=== PATIENT | male | born 1955 | race Caucasian/White ===

== ENCOUNTER 2018-04-30 16:47 | Inpatient (IN) | payer BC, OTHER ==
[~2018-04-30] VITALS: Ht 167.6 cm; Wt 61.7 kg
[2018-04-30] MEDS ORDERED: AMPICILLIN SODIUM/SULBACTAM NA 1.5GM VIAL ONE (17:21)
[2018-04-30] MEDS ORDERED: SODIUM CHLORIDE 0.9% 500ML 500 ML IV ONE (17:21)
[2018-04-30 17:25] LABS: BASOPHILS % (AUTO) 0.6 % (0.0-5.0); EOSINOPHILS % (AUTO) 0.3 % (0.0-8.0); HEMATOCRIT 37.7 % (42-54); LYMPHOCYTES % (AUTO) 12.2 % (21.0-51.0); MEAN CORPUSCULAR HEMOGLOBIN 32.5 pg (27.0-33.0); MEAN CORPUSCULAR HGB CONC 33.3 g/dL (32.0-36.0); MEAN CORPUSCULAR VOLUME 97.7 fL (79-99); MONOCYTES % (AUTO) 6.6 % (3.0-13.0); NEUTROPHILS % (AUTO) 80.3 % (40.0-77.0); PLATELET COUNT (AUTO) 193 K/uL (130-400); RED BLOOD CELL COUNT(AUTO) 3.85 MIL/uL (4.50-6.20); RED CELL DISTRIBUTION WIDTH 13.8 % (11.0-15.5); WHITE BLOOD COUNT (AUTO) 10.2 K/uL (4.8-10.8)
[2018-04-30 17:39] LABS: CREATININE 0.9 mg/dL (0.5-1.5); POTASSIUM 3.9 mmol/L (3.5-5.1)
[2018-04-30 21:30] VITALS: BP 181/85
[2018-04-30 23:00] VITALS: BP 139/80
[2018-05-01] VITALS (25 sets, daily range): BP systolic 113–187; BP diastolic 64–95
[2018-05-01] MEDS ORDERED: BENA20TA10 PO (04:19)
[2018-05-01] MEDS ORDERED: SIMV20TA6 PO (04:19)
[2018-05-01 04:32] LABS: BASOPHILS % (AUTO) 0.7 % (0.0-5.0); EOSINOPHILS % (AUTO) 0.7 % (0.0-8.0); HEMATOCRIT 35.3 % (42-54); LYMPHOCYTES % (AUTO) 16.3 % (21.0-51.0); MEAN CORPUSCULAR HEMOGLOBIN 33.7 pg (27.0-33.0); MEAN CORPUSCULAR HGB CONC 34.8 g/dL (32.0-36.0); MEAN CORPUSCULAR VOLUME 96.7 fL (79-99); MONOCYTES % (AUTO) 7.7 % (3.0-13.0); NEUTROPHILS % (AUTO) 74.6 % (40.0-77.0); PLATELET COUNT (AUTO) 190 K/uL (130-400); RED BLOOD CELL COUNT(AUTO) 3.65 MIL/uL (4.50-6.20); WHITE BLOOD COUNT (AUTO) 7.7 K/uL (4.8-10.8)
[2018-05-01 04:52] LABS: ALBUMIN 3.3 g/dL (3.5-5.0); BILIRUBIN,TOTAL 0.7 mg/dL (0.2-1.0); CREATININE 0.8 mg/dL (0.5-1.5); CRP QUANTITATIVE 35.3 mg/L (0.00-9.0); POTASSIUM 4.1 mmol/L (3.5-5.1); TOTAL PROTEIN, SERUM 6.3 g/dL (6.0-8.3)
[2018-05-01] MEDS ORDERED: KETOROLAC TROMETHAMINE 15MG/ML IM PRN (06:30)
[2018-05-01] MEDS ORDERED: AMOXICILLIN/POTASSIUM CLAV 875-125 TABLET PO SCH (06:30)
[2018-05-01] MEDS ORDERED: ONDANSETRON HCL MDV 20ML 2 MG/ML VIAL IVP PRN (06:45)
[2018-05-01] MEDS ORDERED: MORPHINE SULFATE 4 MG/1ML SYG IVP PRN (07:00)
[2018-05-01] MEDS ORDERED: ACETAMINOPHEN 325 MG TAB PO PRN (07:00)
[2018-05-01] MEDS: SODIUM CHLORIDE 0.9% 1000ML 1,000 ML IV SCH (08:59)
[2018-05-01] MEDS: UNASYN 3GM+NS 100ML 100 ML IV SCH ×3 (08:59→20:17)
[2018-05-01] MEDS ORDERED: LACTATED RINGERS 1000ML 1,000 ML IV ONE (09:48)
[2018-05-01] MEDS ORDERED: HYDROMORPHONE 1 MG/1 ML AMP ONE (10:28)
[2018-05-01] MEDS ORDERED: ONDANSETRON HCL 4 MG/2 ML VIAL ONE (10:36)
[2018-05-01] MEDS ORDERED: DEXAMETHASONE SOD PHOSPHATE 4 MG/ML 1ML VIAL ONE (10:36)
[2018-05-01] MEDS ORDERED: FENTANYL CITRATE PF 50 MCG/1 ML 2ML VIAL ONE (10:36)
[2018-05-01] MEDS ORDERED: LIDOCAINE PF 2% 5ML ABBOJECT ONE (10:36)
[2018-05-01] MEDS ORDERED: PROPOFOL 10 MG/ML 20ML VIAL IV ONE ×2 (10:43)
[2018-05-01] MEDS: CEFAZOLIN SODIUM 1 GM VIAL ONE ×4 (11:30→14:03)
[2018-05-01] MEDS ORDERED: HYDRALAZINE HCL 20 MG/ML VIAL ONE ×2 (12:47→13:01)
[2018-05-02 03:30] VITALS: BP 152/79
[2018-05-02] MEDS: UNASYN 3GM+NS 100ML 100 ML IV SCH ×2 (04:05→12:34)
[2018-05-02] MEDS: SODIUM CHLORIDE 0.9% 1000ML 1,000 ML IV SCH (04:06)
[2018-05-02 04:33] LABS: BASOPHILS % (AUTO) 0.4 % (0.0-5.0); EOSINOPHILS % (AUTO) 0.2 % (0.0-8.0); HEMATOCRIT 33.4 % (42-54); LYMPHOCYTES % (AUTO) 16.7 % (21.0-51.0); MEAN CORPUSCULAR HEMOGLOBIN 32.7 pg (27.0-33.0); MEAN CORPUSCULAR VOLUME 96.3 fL (79-99); MONOCYTES % (AUTO) 7.5 % (3.0-13.0); NEUTROPHILS % (AUTO) 75.2 % (40.0-77.0); PLATELET COUNT (AUTO) 174 K/uL (130-400); RED BLOOD CELL COUNT(AUTO) 3.47 MIL/uL (4.50-6.20); RED CELL DISTRIBUTION WIDTH 13.8 % (11.0-15.5); WHITE BLOOD COUNT (AUTO) 8.3 K/uL (4.8-10.8)
[2018-05-02 04:40] LABS: CREATININE 0.8 mg/dL (0.5-1.5); POTASSIUM 3.9 mmol/L (3.5-5.1)
[2018-05-02 08:14] VITALS: BP 137/64
[2018-05-02] MEDS ORDERED: BENAZEPRIL HCL 10 MG TABLET PO SCH (09:00)
[2018-05-02 11:18] VITALS: BP 124/62
[2018-05-02 15:04] VITALS: BP 119/67
[2018-05-02] MEDS ORDERED: AMOX-426 PO (17:18)
[2018-05-02 19:08] VITALS: BP 124/63
[2018-05-02] MEDS ORDERED: SIMVASTATIN 20 MG TABLET PO SCH (21:00)
== END 2018-05-02 19:58 | disposition home or self-care (01) | DRG 513 ==
LOC: EDH 16:47 → EDHIP 19:20 → 3AH 21:12
PROVIDERS: ADMIT Hospitalist; ATTEND Hospitalist
PROC: 0JBJ0ZZ Excision of Right Hand Subcutaneous Tissue and Fascia, Open Approach (ICD-10-PCS; principal; 2018-05-01 11:25)
PROC: 3E0234Z Introduction of Serum, Toxoid and Vaccine into Muscle, Percutaneous Approach (ICD-10-PCS; 2018-05-01 11:25)
DX: M65.841 Other synovitis and tenosynovitis, right hand (principal); L02.511 Cutaneous abscess of right hand; E78.5 Hyperlipidemia, unspecified; I10 Essential (primary) hypertension; L03.011 Cellulitis of right finger; Y93.89 Activity, other specified; S61.254A Open bite of right ring finger without damage to nail, initial encounter; E78.00 Pure hypercholesterolemia, unspecified; W55.01XA Bitten by cat, initial encounter; Y92.89 Other specified places as the place of occurrence of the external cause; Y99.8 Other external cause status; Z23 Encounter for immunization
CPT/HCPCS: 36415; 73140; 73200; 80048; 80053; 83605; 85025; 86140; 87070; 87076; 87077; 87186; G0008; J0295; J0360; J0690; J1100; J1170; J2001; J2405; J2704; J3010; J7030; J7040; J7120

== ENCOUNTER 2023-01-24 05:55 | Day surgery (SDC) | payer OTHER ==
[2023-01-20 10:41] LABS: BASOPHILS % (AUTO) 0.9 % (0.0-5.0); EOSINOPHILS % (AUTO) 1.9 % (0.0-8.0); HEMATOCRIT 40.5 % (42-54); LYMPHOCYTES % (AUTO) 24.5 % (21.0-51.0); MEAN CORPUSCULAR HEMOGLOBIN 31.3 pg (27.0-33.0); MEAN CORPUSCULAR HGB CONC 32.1 g/dL (32.0-36.0); MEAN CORPUSCULAR VOLUME 97.4 fL (79-99); NEUTROPHILS % (AUTO) 65.2 % (40.0-77.0); PLATELET COUNT (AUTO) 242 K/uL (130-400); RED BLOOD CELL COUNT(AUTO) 4.16 MIL/uL (4.50-6.20); RED CELL DISTRIBUTION WIDTH 13.2 % (11.0-15.5); WHITE BLOOD COUNT (AUTO) 5.8 K/uL (4.8-10.8)
[2023-01-20 10:57] LABS: POTASSIUM 4.8 mmol/L (3.5-5.1)
[2023-01-20 11:03] LABS: INR 1.28 (0.85-1.15); PROTHROMBIN TIME 14.6 SEC (9.6-11.6)
[2023-01-20 11:05] LABS: PARTIAL THROMBOPLASTIN TIME 24.5 SEC (26.3-35.5)
[2023-01-20 11:08] LABS: B-TYPE NATRIURETIC PEPTIDE 18 pg/mL (0-100)
[2023-01-22 18:05] VITALS: BP 131/82
[~2023-01-24] VITALS: Ht 165.1 cm; Wt 72.2 kg
[~2023-01-24 05:55] MED LIST: BENA40TA92 PO; METF-444 PO; SIMV-46 PO
[2023-01-24 06:29] VITALS: BP 138/74
[2023-01-24] MEDS ORDERED: 0.9%NACL 1000ML 1,000 ML IV ONE (06:50)
[2023-01-24] MEDS ORDERED: LIDOCAINE HCL 400MG/20ML VIAL ONE (07:11)
[2023-01-24] MEDS ORDERED: OCTYL 2-CYANOACRYLATE 1 EACH TP ONE (07:45)
[2023-01-24] MEDS ORDERED: GLUCAGON 1MG KIT 1 MG ML IM PRN (08:00)
[2023-01-24] MEDS ORDERED: DEXTROSE 50%-WATER 50 ML DISP.SYRIN IV PRN (08:00)
[2023-01-24 08:08] VITALS: BP 160/70
[2023-01-24 08:18] VITALS: BP 175/67
[2023-01-24 08:28] VITALS: BP 127/64
[2023-01-24 08:40] VITALS: BP 136/74
[2023-01-24 08:55] VITALS: BP 125/65
[2023-01-24] MEDS ORDERED: INSULIN HUMULIN R 100 UNIT/ML 3ML SQ SCH (11:30)
== END 2023-01-24 08:58 | disposition home or self-care (01) ==
LOC: DAH 05:55
PROVIDERS: ATTEND Internal Medicine Interventional Cardiology
DX: Z45.09 Encounter for adjustment and management of other cardiac device (principal); I10 Essential (primary) hypertension; E78.2 Mixed hyperlipidemia; G60.8 Other hereditary and idiopathic neuropathies; Z95.810 Presence of automatic (implantable) cardiac defibrillator; Z79.01 Long term (current) use of anticoagulants; Z86.73 Personal history of transient ischemic attack (TIA), and cerebral infarction without residual deficits; Z79.899 Other long term (current) drug therapy
CPT/HCPCS: 80048; 83880; 85025; 85610; 85730; 36415; 93005; 33286; 82948; J3490; J7030; A4215; A4222; A4221; A4663; A4216; A4606; A4223 ×3